=== PATIENT | male | born 1950 | race Two or more races ===

== ENCOUNTER 2022-11-29 07:40 | Day surgery (SDC) | payer OTHER | END 2022-11-29 13:30 | disposition home or self-care (01) | LOC: AMB-ENDOS 07:40 | PROVIDERS: ATTEND Colon & Rectal Surgery | DX: D12.0 Benign neoplasm of cecum (principal); D12.2 Benign neoplasm of ascending colon; D12.3 Benign neoplasm of transverse colon; D12.4 Benign neoplasm of descending colon; K57.30 Diverticulosis of large intestine without perforation or abscess without bleeding; Z86.010 Personal history of colon polyps; Z20.822 Contact with and (suspected) exposure to COVID-19 ==

== ENCOUNTER 2024-01-23 05:27 | Day surgery (SDC) | payer OTHER ==
[2024-01-23] MEDS ORDERED: MIDAZOLAM HCL 2 MG/2 ML VIAL IV ONE (09:45)
[2024-01-23] MEDS ORDERED: ONDANSETRON HCL 2 MG/ML VIAL IV ONE (09:45)
[2024-01-23] MEDS ORDERED: fentaNYL CITRATE 50 MCG/ML AMPUL IV PUSH ONE (09:45)
[2024-01-23] MEDS ORDERED: DIPHENHYDRAMINE HCL 50 MG/ML VIAL 1ML IV ONE (09:45)
== END 2024-01-23 11:05 | disposition home or self-care (01) ==
LOC: AMB-ENDOS 05:27 → CIR.AMB 13:45 → AMB-ENDOS 13:45
PROVIDERS: ATTEND Colon & Rectal Surgery
DX: D12.0 Benign neoplasm of cecum (principal); D12.3 Benign neoplasm of transverse colon; K63.5 Polyp of colon; K57.30 Diverticulosis of large intestine without perforation or abscess without bleeding

== ENCOUNTER 2025-01-28 07:00 | Day surgery (SDC) | payer OTHER ==
[2025-01-28] MEDS ORDERED: NALOXONE HCL 0.4 MG/ML AMPUL IV STA (09:23)
[2025-01-28] MEDS ORDERED: FLUMAZENIL 0.5 MG/5 ML ML IV STA (09:23)
[2025-01-28] MEDS ORDERED: fentaNYL CITRATE 50 MCG/ML AMPUL IV PUSH ONE (09:30)
[2025-01-28] MEDS ORDERED: DIPHENHYDRAMINE HCL 50 MG/ML VIAL 1ML IV ONE (09:30)
[2025-01-28] MEDS ORDERED: ONDANSETRON HCL 2 MG/ML VIAL IV ONE (09:30)
[2025-01-28] MEDS ORDERED: MIDAZOLAM HCL 2 MG/2 ML VIAL IV ONE (09:30)
== END 2025-01-28 10:40 | disposition home or self-care (01) ==
LOC: AMB-ENDOS 07:00
PROVIDERS: ATTEND Colon & Rectal Surgery
DX: K63.5 Polyp of colon (principal); D12.3 Benign neoplasm of transverse colon; K52.89 Other specified noninfective gastroenteritis and colitis; D12.4 Benign neoplasm of descending colon; D12.5 Benign neoplasm of sigmoid colon; K57.30 Diverticulosis of large intestine without perforation or abscess without bleeding